=== PATIENT | female | born 1995 | race Caucasian/White ===

== ENCOUNTER → 2020-07-03 | Outpatient (REF) | payer OTHER ==
[2020-07-03 18:32] LABS: HEMATOCRIT 35.9 % (36.0-47.0); MEAN CORPUSCULAR HEMOGLOBIN 30.5 pg (27.0-33.0); MEAN CORPUSCULAR HGB CONC 33.4 g/dl (32.0-36.5); MEAN CORPUSCULAR VOLUME 91.1 fl (80.0-96.0); PLATELET COUNT, AUTOMATED 201 10^3/uL (150-450); RED BLOOD COUNT 3.94 10^6/uL (4.00-5.40)
[2020-07-03 19:29] LABS: HEPATITIS C VIRUS ABY INDEX < 0.0 INDEX (<0.8); HIV 1&2 SCREEN CENTAUR NEGATIVE (NEGATIVE)
== END ==
LOC: M PLALAB 15:09
PROVIDERS: ATTEND Advanced Practice Midwife
DX: Z34.01 Encounter for supervision of normal first pregnancy, first trimester (principal)

== ENCOUNTER → 2020-10-06 | Outpatient (CLI) | payer OTHER ==
--- NOTE | 2020-10-06 15:41 | REP ---
INDICATION: ANATOMY. COMPARISON: None. TECHNIQUE: Ultrasound FINDINGS: A single living fetus is present in vertex presentation showing heart rate 161 beats per minute. Placenta anterior grade 1. No previa demonstrated. There is marginal insertion of the cord. Three vessels are noted in the umbilical cord. The anatomic survey was complete and unremarkable except for four-chamber heart which was suboptimal. Average gestational age was calculated from the following measurements BPD 5.2, HCT 19.2, AC 15.4, FL 3.4 cm, HL 3.3 cm. The average gestational age is 21 weeks and 1 day with EB 02/15/2021. IMPRESSION: Living intrauterine female fetus in vertex presentation showing EB 02/15/2021 <Electronically signed by Onel Guidry > 10/06/20 [id number]
== END ==
LOC: M WHC 14:36
PROVIDERS: ATTEND Advanced Practice Midwife
DX: Z34.02 Encounter for supervision of normal first pregnancy, second trimester (principal); Z3A.21 21 weeks gestation of pregnancy

== ENCOUNTER → 2020-11-17 | Outpatient (CLI) | payer OTHER ==
--- NOTE | 2020-11-17 11:22 | REP ---
INDICATION: F/U ANATOMY. COMPARISON: 10/06/2020. TECHNIQUE: Real-time sonographic evaluation of the gravid uterus performed. FINDINGS: Estimated gestational age is26 weeks 5 days, EDC 02/19/2020. Today's measurements indicate appropriate growth. Presentation: Breech Placenta anterior, grade 2, without evidence of placenta previa. heart rate is recorded at 139 beats per minute. Amniotic fluid is subjectively normal. Closed cervical length is measured at 4.1 cm. Biometry chart: BPD: 68 mm, 27 weeks 3 days, 65th percentile. HC: 256 mm, 27 weeks 6 days, 74th percentile AC: 225 mm, 26 weeks 6 days, 54th percentile Femur length: 53 mm, 28 weeks 1 days, 81st percentile HC to AC ratio: 1.14, normal range 1.00-1.19. Estimated weight: 1080g, 69th percentile. anatomy: Four-chamber heart and ventricular outflow tracts are visualized today and are grossly unremarkable. IMPRESSION: Viable single intrauterine gestation as above. <Electronically signed by Cal Jones > 11/17/20 [id number]
== END ==
LOC: M WHC 07:19
PROVIDERS: ATTEND Advanced Practice Midwife
DX: Z34.02 Encounter for supervision of normal first pregnancy, second trimester (principal); Z3A.26 26 weeks gestation of pregnancy

== ENCOUNTER → 2020-11-23 | Outpatient (CLI) | payer OTHER ==
[2020-11-23 13:48] LABS: HEMATOCRIT 33.5 % (36.0-47.0); HEMOGLOBIN 11.2 g/dl (12.0-15.5); MEAN CORPUSCULAR HEMOGLOBIN 30.5 pg (27.0-33.0); MEAN CORPUSCULAR HGB CONC 33.4 g/dl (32.0-36.5); MEAN CORPUSCULAR VOLUME 91.3 fl (80.0-96.0); PLATELET COUNT, AUTOMATED 201 10^3/uL (150-450); RED BLOOD COUNT 3.67 10^6/uL (4.00-5.40); WHITE BLOOD COUNT 9.2 10^3/uL (4.0-10.0)
== END ==
LOC: M PLALAB 10:06
PROVIDERS: ATTEND Advanced Practice Midwife
DX: Z34.02 Encounter for supervision of normal first pregnancy, second trimester (principal); Z3A.00 Weeks of gestation of pregnancy not specified
CPT/HCPCS: 36415; 82950; 85027; 86850; 86900; 86901; J2790

== ENCOUNTER → 2021-01-03 | Outpatient (REF) | payer OTHER | LOC: M PLALAB 19:12 | PROVIDERS: ATTEND Advanced Practice Midwife | DX: Z53.20 Procedure and treatment not carried out because of patient's decision for unspecified reasons (principal) ==

== ENCOUNTER → 2021-01-04 | Outpatient (CLI) | payer OTHER ==
[2021-01-04 14:24] LABS: HEMATOCRIT 36.2 % (36.0-47.0); MEAN CORPUSCULAR HEMOGLOBIN 29.2 pg (27.0-33.0); MEAN CORPUSCULAR HGB CONC 33.1 g/dl (32.0-36.5); MEAN CORPUSCULAR VOLUME 88.1 fl (80.0-96.0); PLATELET COUNT, AUTOMATED 238 10^3/uL (150-450); RED BLOOD COUNT 4.11 10^6/uL (4.00-5.40); WHITE BLOOD COUNT 8.6 10^3/uL (4.0-10.0)
[2021-01-04 16:31] LABS: ALBUMIN 2.4 GM/DL (3.2-5.2); BILIRUBIN,DIRECT 0.2 MG/DL (0.0-0.2); BILIRUBIN,TOTAL 0.4 MG/DL (0.2-1.0); TOTAL PROTEIN 6.1 GM/DL (6.4-8.2)
== END ==
LOC: M PLALAB 10:14
PROVIDERS: ATTEND Advanced Practice Midwife
DX: L29.9 Pruritus, unspecified (principal)

== ENCOUNTER → 2021-01-10 | Outpatient (CLI) | payer OTHER ==
--- NOTE | 2021-01-10 15:01 | REP ---
INDICATION: TOXIC LIVER DISEASE WITH CHOLESTASIS COMPARISON: 11/17/2020 TECHNIQUE: Transabdominal obstetrical ultrasound with color Doppler evaluation. FINDINGS: Examination demonstrates a single live intrauterine in cephalic presentation. motion is identified by technologist. Placenta is noted anterior and grade 1 without evidence for placenta previa or abruption. Amniotic fluid volume is normal. Cervix measures 3.4 cm in length and appears closed.. Selected gestational age: 34 weeks 3 days with EB 02/18/2021. Gestational age by current measurements 35 weeks 1 day with EB 02/13/2021. FHR equals 152 beats per minute. BPD: 8.8 cm at 35 weeks 4 days HC: 31.7 cm at 35 weeks 5 days AC: 31.6 cm at 35 weeks 4 days FL: 6.9 cm at 35 weeks 4 days HL: 5.8 cm at 33 weeks 4 days HC/AC: 1.00 Estimated weight 2705 grams (77thpercentile). KAYKAY: 17.6 cm IMPRESSION: Single live intrauterine in cephalic presentation demonstrating appropriate estimated weight and growth. <Electronically signed by Uche Gentile > 01/10/21 [id number]
== END ==
LOC: M WHC 14:29
PROVIDERS: ATTEND Advanced Practice Midwife
DX: K71.0 Toxic liver disease with cholestasis (principal)

== ENCOUNTER 2021-01-13 14:16 | Outpatient (CLI) | payer OTHER ==
[~2021-01-13] VITALS: Ht 165.1 cm; Wt 75.2 kg
[2021-01-13 14:31] VITALS: BP 129/81
[2021-01-13] MEDS ORDERED: URSO300C3 PO (14:39)
[2021-01-13] MEDS ORDERED: PRENTAB9 PO (14:39)
[2021-01-13] MEDS ORDERED: HOME MED LIST COMPLETE! XX SCH (14:40)
--- NOTE | 2021-01-13 23:21 | IPNPDOC ---
Text Note Date of Service The patient was seen on 01/13/21. NOTE S: Pt is a 25yo at 34.6 EGA who presents with dfm. Denies ctx/lof/vb. Pt with reactive NST in triage with normalization of movement. VS wnl. Pt dc'ed home with precautions and routine follow up. VS,Fishbone, I+O VS, Fishbone, I+O Vital Signs Date Time Temp Pulse Resp B/P (MAP) Pulse Ox O2 Delivery O2 Flow Rate FiO2 01/13/21 14:31 98.1 100 16 129/81 (97) 99 Room Air ISADORA MODI MD Jan 13, 2021 23:21
== END 2021-01-13 15:11 | disposition home or self-care (01) ==
LOC: M LDO 14:16
PROVIDERS: ATTEND Obstetrics & Gynecology
DX: O36.8130 Decreased fetal movements, third trimester, not applicable or unspecified (principal); Z3A.34 34 weeks gestation of pregnancy
CPT/HCPCS: 59025; G0378; G0463

== ENCOUNTER → 2021-01-16 | Outpatient (REF) | payer OTHER ==
[~2021-01-16] MED LIST: PRENTAB9 PO; URSO300C3 PO
== END ==
LOC: M SFHCWAGY 12:52
PROVIDERS: ATTEND Advanced Practice Midwife
DX: Z36.85 Encounter for antenatal screening for Streptococcus B (principal); Z3A.35 35 weeks gestation of pregnancy

== ENCOUNTER 2021-01-29 08:13 | Inpatient (IN) | payer OTHER ==
[~2021-01-29] VITALS: Ht 165.1 cm; Wt 76.0 kg
[2021-01-29] VITALS (40 sets, daily range): BP systolic 121–174; BP diastolic 72–99
--- OUTSIDE RECORDS SUMMARY | 2021-01-29 08:19 | CCD ---
Author Author [facility] Organization [facility] Address Unknown Phone Unavailable Care Team Providers Care Viticulture Teacher Name Role Phone NINA, Amarilis CRAWFORD PA Unavailable Unavailable LETTIERE, A TY PA Unavailable Unavailable LETTIERE, A TY PA Unavailable Unavailable LETTIERE, A TY PA Unavailable Unavailable LETTIERE, A TY PA Unavailable Unavailable LETTIERE, A TY PA Unavailable Unavailable LETTIERE, A TY PA Unavailable Unavailable LETTIERE, A TY PA Unavailable Unavailable LETTIERE, A TY PA Unavailable Unavailable LETTIERE, A TY PA Unavailable Unavailable LETTIERE, A TY PA Unavailable Unavailable LETTIERE, A TY PA Unavailable Unavailable LETTIERE, A TY PA Unavailable Unavailable LETTIERE, A TY PA Unavailable Unavailable LETTIERE, A TY PA Unavailable Unavailable LETTIERE, A TY PA Unavailable Unavailable LETTIERE, A TY PA Unavailable Unavailable LETTIERE, A TY PA Unavailable Unavailable LETTIERE, A TY PA Unavailable Unavailable LETTIERE, A TY PA Unavailable Unavailable LETTIERE, A TY PA Unavailable Unavailable LETTIERE, A TY PA Unavailable Unavailable LETTIERE, A TY PA Unavailable Unavailable LETTIERE, A TY PA Unavailable Unavailable LETTIERE, A TY PA Unavailable Unavailable LETTIERE, A TY PA Unavailable Unavailable LETTIERE, A TY PA Unavailable Unavailable LETTIERE, A TY PA Unavailable Unavailable LETTIERE, A TY PA Unavailable Unavailable LETTIERE, A TY PA Unavailable Unavailable LETTIERE, A TY PA Unavailable Unavailable Re-disclosure Warning The records that you are about to access may contain information from federally-assisted alcohol or drug abuse programs. If such information is present, then the following federally mandated warning applies: This information has been disclosed to you from records protected by federal confidentiality rules (42 CFR part 2). The federal rules prohibit you from making any further disclosure of this information unless further disclosure is expressly permitted by the written consent of the person to whom it pertains or as otherwise permitted by 42 CFR part 2. A general authorization for the release of medical or other information is NOT sufficient for this purpose. The Federal rules restrict any use of the information to criminally investigate or prosecute any alcohol or drug abuse patient.The records that you are about to access may contain highly sensitive health information, the redisclosure of which is protected by Article 27-F of the [facility] Public Health law. If you continue you may have access to information: Regarding HIV / AIDS; Provided by facilities licensed or operated by the [facility] Office of Mental Health; or Provided by the [facility] Office for People With Developmental Disabilities. If such information is present, then the following [facility] mandated warning applies: This information has been disclosed to you from confidential records which are protected by state law. State law prohibits you from making any further disclosure of this information without the specific written consent of the person to whom it pertains, or as otherwise permitted by law. Any unauthorized further disclosure in violation of state law may result in a fine or fci sentence or both. A general authorization for the release of medical or other information is NOT sufficient authorization for further disc losure. Encounters Encounter Providers Location Date Indications Data Source(s ) ( ESTOB) enter Est OB [address] [place] [address] 01/16/2021 12:00:00 AM EST eCW1 ([facility]) Unknown [address] [facility] [address] 01/16/2021 12:00:00 AM EST eCW1 ([facility]) ( ESTOB) enter Est OB [address] [place] [address] 01/09/2021 12:00:00 AM EST eCW1 ([facility]) Unknown [address] [facility] [address] 01/03/2021 12:00:00 AM EST eCW1 ([facility]) ( ESTOB) [facility] Est OB [address] [place] [address] 12/12/2020 12:00:00 AM EDT eCW1 ([facility]) ( ESTOB) [facility] Est OB [address] [place] [address] 11/28/2020 12:00:00 AM EDT eCW1 ([facility]) ( ESTOB) enter Est OB [address] [place] [address] 10/31/2020 12:00:00 AM EDT eCW1 ([facility]) ( ESTOB) [facility] Est OB [address] [place] [address] 09/15/2020 12:00:00 AM EDT eCW1 ([facility]) Unknown [address] [facility] [address] 09/13/2020 12:00:00 AM EDT eCW1 ([facility]) Outpatient Attender: TY rojas 08/15/2020 02:15:00 PM EDT MEDENT ([facility]) ( ESTOB) [facility] Est OB [address] [place] [address] 07/31/2020 12:00:00 AM EDT eCW1 ([facility]) ( ESTOB) [facility] Est OB [address] [place] [address] 07/03/2020 12:00:00 AM EDT eCW1 ([facility]) Immunizations Vaccine Date Status Description Data Source(s) 12/12/2020 09:46:00 AM EDT completed e CW1 ([facility]) Tdap 12/12/2020 09:44:00 AM EDT completed e CW1 ([facility]) Tdap 12/12/2020 09:44:00 AM EDT completed e CW1 ([facility]) Tdap 12/12/2020 09:44:00 AM EDT completed e CW1 ([facility]) Tdap 12/12/2020 09:44:00 AM EDT completed e CW1 ([facility]) Tdap 12/12/2020 09:44:00 AM EDT completed e CW1 ([facility]) TB Skin test is not vaccine. 08/15/2020 02:02:00 PM EDT completed MEDENT ([facility]) Medications Medication Brand Name Start Date Product Form Dose Route Admi nistrative Instructions Pharmacy Instructions Status Indications Reaction Description Data Source(s) Ursodiol 300 MG Oral Capsule Ursodiol 300 MG 01/09/2021 12:00:00 AM EST 1.0 {capsule} active Ursodiol 300 MG eCW1 ( [facility]) Ursodiol 300 MG Oral Capsule Ursodiol 300 MG 01/09/2021 12:00:00 AM EST 1.0 {capsule} active Ursodiol 300 MG eCW1 ( [facility]) Ursodiol 300 MG Oral Capsule Ursodiol 300 MG 01/09/2021 12:00:00 AM EST 1.0 {capsule} active Ursodiol 300 MG eCW1 ( [facility]) Insurance Providers Payer name Policy type / Coverage type Policy ID Covered green party ID Covered green party's relationship to vila Policy Vila Plan Information [facility] [id number] Problems, Conditions, and Diagnoses Code Display Name Description Problem Type Effective Dates Data Source(s) K71.0 Toxic liver disease with cholestasis Toxic liver disease with cholestasis Problem 01/09/2021 12:00:00 AM EST eCW1 ([facility]) Z34.80 care Supervision of other normal P roblem 06/29/2020 12:00:00 AM EDT eCW1 ([facility]) Surgeries/Procedures Procedure Description Date Indications Data Source(s) NONSTRESS TEST 01/09/2021 12:00:00 AM EST eCW1 ([facility]) Inj: RhoGAM 300mcg/1.5mL IM Rho D Immune Globulin Human 12/12/2020 12:00:00 AM EDT eCW1 ([facility]) TDAP VACCINE 7/> YR IM 12/12/2020 12:00:00 AM EDT eCW1 ([facility]) INITIAL PREVENTIVE MEDICINE NEW PT AGE 18-39YRS 2020 12:00:00 AM EDT MEDENT ([facility]) Results ID Date Data Source [id number] 11/18/2020 04:15:00 PM EDT [facility] Name Value Range Interpretation Code Description Data Christelle rce(s) Supporting Document(s) SARS-CoV-2 RNA Resp Ql PAULA+probe NOT DETECTED [facility] This lab was ordered by MARYSOL long and reported by MARYSOL Johnson. ID Date Data Source [id number] 11/15/2020 02:45:00 PM EDT [facility] Name Value Range Interpretation Code Description Data Christelle rce(s) Supporting Document(s) SARS-CoV-2 RNA Resp Ql PAULA+probe NOT DETECTED [facility] This lab was ordered by MARYSOL long and reported by MARYSOL Johnson. Procedure Social History Code Duration Value Status Description Data Source(s ) Smoking 01/15/2021 12:00:00 AM EST Never Smoker completed Never S moker eCW1 ([facility]) Smoking 01/15/2021 12:00:00 AM EST Never Smoker completed Never S moker eCW1 ([facility]) Smoking 01/09/2021 12:00:00 AM EST Never Smoker completed Never S moker eCW1 ([facility]) Smoking 12/26/2020 12:00:00 AM EDT Never Smoker completed Never S moker eCW1 ([facility]) Smoking 12/08/2020 12:00:00 AM EDT Never Smoker completed Never S moker eCW1 ([facility]) Smoking 11/27/2020 12:00:00 AM EDT Never Smoker completed Never S moker eCW1 ([facility]) Smoking 10/23/2020 12:00:00 AM EDT Never Smoker completed Never S moker eCW1 ([facility]) Smoking 09/15/2020 12:00:00 AM EDT Never Smoker completed Never S moker eCW1 ([facility]) Smoking 07/18/2020 12:00:00 AM EDT Never Smoker completed Never S moker eCW1 ([facility]) Smoking 07/18/2020 12:00:00 AM EDT Never Smoker completed Never S moker eCW1 ([facility]) Smoking 07/03/2020 12:00:00 AM EDT Never Smoker completed Never S moker eCW1 ([facility]) Vital Signs ID Date Data Source UNK Name Value Range Interpretation Code Description Data Source(s) Body weight 163 [lb_av] 163 [lb_av] eCW1 ([facility]) Body weight 73.94 kg 73.94 kg eCW1 ([facility]) Body height 65 [in_i] 65 [in_i] eCW1 ([facility]) Body mass index (BMI) [Ratio] 27.125 kg/m2 27.1 25 kg/m2 eCW1 ([facility]) Systolic blood pressure 122 mm[Hg] 122 mm[Hg] e CW1 ([facility]) Diastolic blood pressure 84 mm[Hg] 84 mm[Hg] eCW1 ([facility]) Body weight 166.8 [lb_av] 166.8 [lb_av] eCW1 ([facility]) Body weight 75.66 kg 75.66 kg eCW1 ([facility]) Body height 65 [in_i] 65 [in_i] eCW1 ([facility]) Diastolic blood pressure 80 mm[Hg] 80 mm[Hg] eCW1 ([facility]) Body mass index (BMI) [Ratio] 27.757 kg/m2 27.7 57 kg/m2 eCW1 ([facility]) Systolic blood pressure 122 mm[Hg] 122 mm[Hg] e CW1 ([facility]) Body weight 154.8 [lb_av] 154.8 [lb_av] eCW1 ([facility]) Body weight 70.22 kg 70.22 kg eCW1 ([facility]) Body height 65 [in_i] 65 [in_i] eCW1 ([facility]) Body mass index (BMI) [Ratio] 25.76 kg/m2 25.76 kg/m2 eCW1 ([facility]) Systolic blood pressure 116 mm[Hg] 116 mm[Hg] e CW1 ([facility]) Diastolic blood pressure 80 mm[Hg] 80 mm[Hg] eCW1 ([facility]) Body weight 154.6 [lb_av] 154.6 [lb_av] eCW1 ([facility]) Body weight 70.13 kg 70.13 kg eCW1 ([facility]) Body height 65 [in_i] 65 [in_i] eCW1 ([facility]) Body mass index (BMI) [Ratio] 25.727 kg/m2 25.7 27 kg/m2 eCW1 ([facility]) Systolic blood pressure 110 mm[Hg] 110 mm[Hg] e CW1 ([facility]) Diastolic blood pressure 76 mm[Hg] 76 mm[Hg] eCW1 ([facility]) Body weight 149 [lb_av] 149 [lb_av] eCW1 ([facility]) Body weight 67.59 kg 67.59 kg eCW1 ([facility]) Body height 65 [in_i] 65 [in_i] eCW1 ([facility]) Body mass index (BMI) [Ratio] 24.795 kg/m2 24.7 95 kg/m2 eCW1 ([facility]) Systolic blood pressure 126 mm[Hg] 126 mm[Hg] e CW1 ([facility]) Diastolic blood pressure 78 mm[Hg] 78 mm[Hg] eCW1 ([facility]) Body weight 143.6 [lb_av] 143.6 [lb_av] eCW1 ([facility]) Body mass index (BMI) [Ratio] 23.896 kg/m2 23.8 96 kg/m2 eCW1 ([facility]) Body weight 65.14 kg 65.14 kg eCW1 ([facility]) Body height 65 [in_i] 65 [in_i] eCW1 ([facility]) Systolic blood pressure 110 mm[Hg] 110 mm[Hg] e CW1 ([facility]) Diastolic blood pressure 74 mm[Hg] 74 mm[Hg] eCW1 ([facility]) Body height 66 [in_i] 66 [in_i] MEDENT ([facility]) 5'6" Body mass index (BMI) [Ratio] 22.3 kg/m2 22.3 k g/m2 MEDENT ([facility], [facility]) Systolic blood pressure 118 mm[Hg] 118 mm[Hg] M EDENT ([facility], [facility]) Heart rate 98 /min 98 /min [facility], [facility]) Diastolic blood pressure 77 mm[Hg] 77 mm[Hg] MEDENT ([facility], [facility]) Respiratory rate 16 /min 16 /min [facility] ( [facility], [facility]) Oxygen saturation in Arterial blood by Pulse oximetry 99 % 99 % MEDENT ([facility], [facility]) Body temperature 97.5 [degF] 97.5 [degF] MEDENT ([facility], [facility]) Body weight 138.00 [lb_av] 138.00 [lb_av] MEDEN T ([facility], [facility]) Body weight 138.8 [lb_av] 138.8 [lb_av] eCW1 ([facility]) Body weight 62.96 kg 62.96 kg W1 ([facility]) Body height 65 [in_i] 65 [in_i] eCW1 ([facility]) Body mass index (BMI) [Ratio] 23.098 kg/m2 23.0 98 kg/m2 eCW1 ([facility]) Systolic blood pressure 112 mm[Hg] 112 mm[Hg] e CW1 ([facility]) Diastolic blood pressure 68 mm[Hg] 68 mm[Hg] eCW1 ([facility]) Body weight 139.8 [lb_av] 139.8 [lb_av] eCW1 ([facility]) Body weight 63.41 kg 63.41 kg eCW1 ([facility]) Body height 65 [in_i] 65 [in_i] eCW1 ([facility]) Body mass index (BMI) [Ratio] 23.264 kg/m2 23.2 64 kg/m2 [facility] ([facility]) Systolic blood pressure 122 mm[Hg] 122 mm[Hg] e CW1 ([facility]) Diastolic blood pressure 62 mm[Hg] 62 mm[Hg] eCW1 ([facility]) Patient Treatment Plan of Care Planned Activity Planned Date Details Description Data Source (s) Ursodiol 300 MG Oral Capsule 01/09/2021 12:00:00 AM EST [facility] ([facility])
--- OUTSIDE RECORDS SUMMARY | 2021-01-29 08:19 | CCD ---
Author Author [facility] Organization [facility] Address Unknown Phone Unavailable Care Team Providers Care Swimming Pool Maintenance Supervisor Name Role Phone MalikRigoberto Unavailable PROBLEMS Type Condition ICD9-CM Code [id number] Code Onset Dates Condition S tatus W/U Status Risk SNOMED Code Notes Problem Supervision of other normal Z34.80 Ac tive confirm [id number] ALLERGIES No Known Allergies ENCOUNTERS from 1997 to 2020-12-12 Encounter Location Date Provider Diagnosis [facility] [phone] [place] [address] Nov, Rigoberto Gan Encounter for superv ision of normal first in third trimester Z34.03 IMMUNIZATIONS Vaccine Route Administration Date Status TDAP 0.5mL Boostrix IM Intramuscular Dec 12, 2020 Administere d RHo D Immune Globulin 300mcg/1.5mL RhoGAM IM Intramuscular Nov 242020 Administered SOCIAL HISTORY Tobacco Use: Social History Observation Description Date Details (start date - stop date) Never Smoker Sex Assigned At : Social History Observation Description Sex Assigned At Unknown Tobacco Use: Question Answer Notes Are you a: never smoker REASON FOR REFERRAL No Information VITAL SIGNS Weight 154.8 lbs Nov, Weight-kg 70.22 kg Nov, Height 65 in Nov, BMI 25.76 kg/m2 Nov, Blood pressure systolic 116 mm Hg Nov, Blood pressure diastolic 80 mm Hg Nov, MEDICATIONS Medication SIG (Take, Route, Frequency, Duration) Notes Start Da te End Date Status 27-1 MG 1 tablet Orally Once a day Active PROCEDURES from 1997 to 2020-12-12 Procedure Date Ordered Result Body Site Imm: Boostrix 0.5mL IM TDAP 2020-12-12 N/A Inj: RhoGAM 300mcg/1.5mL IM Rho D Immune Globulin Human N/A RESULTS No Results REASON FOR VISIT 2 WK PN MEDICAL (GENERAL) HISTORY Type Description Date Surgical History [place] Teeth Extraction Goals Section No Information Health Concerns No Information MEDICAL EQUIPMENT No Information MENTAL STATUS No Information FUNCTIONAL STATUS No Information ASSESSMENTS Encounter Date Diagnosis Assessment Notes Treatment Notes Treatm ent Clinical Notes Nov, Encounter for supervision of normal first in third trimester (ICD-10 - Z34.03) PLAN OF TREATMENT Next Appt Details 2 Weeks Reason: Provider Name:Rigoberto Gan, 2020-12-26 0 8:40:00 AM, [address] [facility], , [place], [address], Insurance Providers Payer Name Payer Address Payer Phone Insured Name Patient Relati onship to Insured Coverage Start Date Coverage End Date [address] [phone] CHAPARRITA TREVIÑO self
--- OUTSIDE RECORDS SUMMARY | 2021-01-29 08:19 | CCD ---
Author Author [facility] Organization [facility] Address Unknown Phone Unavailable Care Team Providers Care Classroom Instructor Name Role Phone Rigoberto Gan Unavailable PROBLEMS ALLERGIES No Known Allergies ENCOUNTERS from 1997 to 2021-01-05 IMMUNIZATIONS SOCIAL HISTORY REASON FOR REFERRAL No Information VITAL SIGNS MEDICATIONS PROCEDURES No Information RESULTS No Results REASON FOR VISIT No Information MEDICAL (GENERAL) HISTORY Goals Section Health Concerns MEDICAL EQUIPMENT No Information MENTAL STATUS FUNCTIONAL STATUS ASSESSMENTS PLAN OF TREATMENT Insurance Providers
--- OUTSIDE RECORDS SUMMARY | 2021-01-29 08:19 | CCD ---
Author Author [facility] [employer] [facility] Organization [facility] Address Unknown Phone Unavailable Care Team Providers Care Heavy Cleaner Name Role Phone Trisha Vargas Unavailable PROBLEMS Type Condition ICD9-CM Code [id number] Code Onset Dates Condition S tatus W/U Status Risk SNOMED Code Notes Problem Supervision of other normal Z34.80 Ac tive confirm [id number] Problem Toxic liver disease with cholestasis K71.0 Act martina confirmed [id number] ALLERGIES No Known Allergies ENCOUNTERS from 1997 to 2021-01-17 Encounter Location Date Provider Diagnosis [facility] [phone] [place] [address] Dec, Trisha Vargas IMMUNIZATIONS Vaccine Route Administration Date Status TDAP 0.5mL Boostrix IM Intramuscular Dec 12, 2020 Administere d SOCIAL HISTORY Tobacco Use: Social History Observation Description Date Details (start date - stop date) Never Smoker Sex Assigned At : Social History Observation Description Sex Assigned At Unknown Tobacco Use: Question Answer Notes Are you a: never smoker REASON FOR REFERRAL No Information VITAL SIGNS No information MEDICATIONS Medication SIG (Take, Route, Frequency, Duration) Notes Start Da te End Date Status 27-1 MG 1 tablet Orally Once a day Active Ursodiol 300 MG 1 capsule Orally Three times daily for 30 day(s) Dec, Active PROCEDURES No Information RESULTS No Results REASON FOR VISIT appt MEDICAL (GENERAL) HISTORY Type Description Date Surgical History [place] Teeth Extraction Goals Section No Information Health Concerns No Information MEDICAL EQUIPMENT No Information MENTAL STATUS No Information FUNCTIONAL STATUS No Information ASSESSMENTS No Information PLAN OF TREATMENT Next Appt Details Provider Name:Trisha Vargas, 2021-01-24 01:20:00 PM, [address] [facility], , [place], [address], Insurance Providers Payer Name Payer Address Payer Phone Insured Name Patient Relati onship to Insured Coverage Start Date Coverage End Date [place] [id number] [phone] CHAPARRITA TREVIÑO self
--- OUTSIDE RECORDS SUMMARY | 2021-01-29 08:19 | CCD ---
Author Author [facility] Organization [facility] Address Unknown Phone Unavailable Care Team Providers Care Senior Manufacturing Supervisor Name Role Phone Trisha Vargas Unavailable PROBLEMS Type Condition ICD9-CM Code [id number] Code Onset Dates Condition S tatus W/U Status Risk SNOMED Code Notes Problem Supervision of other normal Z34.80 Ac tive confirm [id number] Problem Toxic liver disease with cholestasis K71.0 Act martina confirmed [id number] ALLERGIES No Known Allergies ENCOUNTERS from 1997 to 2021-01-17 Encounter Location Date Provider Diagnosis [facility] [address] [facility] [phone] [place] [address] Dec, Trisha Vargas Toxic liver disea se with cholestasis K71.0 ; Other specified related conditions, third trimester O26.893 and 35 weeks gestation of Z3A.35 IMMUNIZATIONS Vaccine Route Administration Date Status TDAP 0.5mL Boostrix IM Intramuscular Dec 12, 2020 Administere d SOCIAL HISTORY Tobacco Use: Social History Observation Description Date Details (start date - stop date) Never Smoker Sex Assigned At : Social History Observation Description Sex Assigned At Unknown Tobacco Use: Question Answer Notes Are you a: never smoker REASON FOR REFERRAL No Information VITAL SIGNS Weight 163 lbs Dec, Weight-kg 73.94 kg Dec, Height 65 in Dec, BMI 27.125 kg/m2 Dec, Blood pressure systolic 122 mm Hg Dec, Blood pressure diastolic 84 mm Hg Dec, MEDICATIONS Medication SIG (Take, Route, Frequency, Duration) Notes Start Da te End Date Status 27-1 MG 1 tablet Orally Once a day Active Ursodiol 300 MG 1 capsule Orally Three times daily for 30 day(s) Dec, Active PROCEDURES No Information RESULTS No Results REASON FOR VISIT 1 wk pn MEDICAL (GENERAL) HISTORY Type Description Date Surgical History [place] Teeth Extraction Goals Section No Information Health Concerns No Information MEDICAL EQUIPMENT No Information MENTAL STATUS No Information FUNCTIONAL STATUS No Information ASSESSMENTS Encounter Date Diagnosis Assessment Notes Treatment Notes Treatm ent Clinical Notes Dec, Toxic liver disease with cholestasis (ICD-10 - K 71.0) Dec, Other specified re lated conditions, third trimester (ICD- 10 - O26.893) Dec, 35 weeks gestation of (ICD-10 - Z3A.35 ) PLAN OF TREATMENT Pending Tests Test Name Order Date GROUP B STREP CULTURE 2021-01-16 non-stress test 2021-01-16 Next Appt Details 1 Week Reason:- COB appt with testing [facility]-01-24 01:00:00 PM, [address] [facility], , [place], [address], Follow Up:1 Week- COB appt with testing Insurance Providers Payer Name Payer Address Payer Phone Insured Name Patient Relati onship to Insured Coverage Start Date Coverage End Date [place] [phone] CHAPARRITA TREVIÑO self
--- OUTSIDE RECORDS SUMMARY | 2021-01-29 08:19 | CCD ---
Author Author [facility] Organization 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 Act martina confirmed [id number] ALLERGIES No Known Allergies ENCOUNTERS from 1997 to 2021-01-10 Encounter Location Date Provider Diagnosis [facility] [address] [facility] [phone] [place] [address] Dec, Trishayaneth Vargas Toxic liver disea se with cholestasis K71.0 ; Liver and biliary tract disorders in , third trimester O26.613 and 34 weeks gestation of Z3A.34 IMMUNIZATIONS Vaccine Route Administration Date Status TDAP 0.5mL Boostrix IM Intramuscular Dec 12, 2020 Administere d SOCIAL HISTORY Tobacco Use: Social History Observation Description Date Details (start date - stop date) Never Smoker Sex Assigned At : Social History Observation Description Sex Assigned At Unknown Tobacco Use: Question Answer Notes Are you a: never smoker REASON FOR REFERRAL No Information VITAL SIGNS Weight 166.8 lbs Dec, Weight-kg 75.66 kg Dec, Height 65 in Dec, BMI 27.757 kg/m2 Dec, Blood pressure systolic 122 mm Hg Dec, Blood pressure diastolic 80 mm Hg Dec, MEDICATIONS Medication SIG (Take, Route, Frequency, Duration) Notes Start Da te End Date Status 27-1 MG 1 tablet Orally Once a day Active Ursodiol 300 MG 1 capsule Orally Three times daily for 30 day(s) Dec, Active PROCEDURES from 1997 to 2021-01-10 Procedure Date Ordered Result Body Site non-stress test 2021-01-09 N/A RESULTS No Results REASON FOR VISIT 2 WK PN MEDICAL (GENERAL) HISTORY Type Description Date Surgical History [place] Teeth Extraction Goals Section No Information Health Concerns No Information MEDICAL EQUIPMENT No Information MENTAL STATUS No Information FUNCTIONAL STATUS No Information ASSESSMENTS Encounter Date Diagnosis Assessment Notes Treatment Notes Treatm ent Clinical Notes Dec, Toxic liver disease with cholestasis (ICD-10 - K 71.0) Dec, Liver and biliary tract diso rders in , third trimester (ICD-10 - O26.613) Dec, 34 weeks gestation of (ICD-10 - Z3A.34 ) PLAN OF TREATMENT Medication Medication Name Sig Start Date Stop Date Ursodiol 300 MG 1 capsule Orally Three times daily for 30 day(s) Dec, Pending Tests Test Name Order Date [facility] OBS FOLLOW UP OR REPEAT 2021-01-09 Next Appt Details 1 Week Reason:- COB appt with testing Provider Name:Trisha Vargas, 2021-01-16 11:00:00 AM, [address] [facility], , [place], [address], Follow Up:1 Week- COB appt with testing Insurance Providers Payer Name Payer Address Payer Phone Insured Name Patient Relati onship to Insured Coverage Start Date Coverage End Date [address] [phone] CHAPARRITA TREVIÑO self
--- OUTSIDE RECORDS SUMMARY | 2021-01-29 08:19 | CCD ---
Author Author [facility] Organization [facility] Address Unknown Phone Unavailable Care Team Providers Care Forms Builder Name Role Phone MalikRigoberto Unavailable PROBLEMS Type Condition ICD9-CM Code [id number] Code Onset Dates Condition S tatus W/U Status Risk SNOMED Code Notes Problem Supervision of other normal Z34.80 Ac tive confirm [id number] ALLERGIES No Known Allergies ENCOUNTERS from 1997 to 2020-11-28 Encounter Location Date Provider Diagnosis [facility] [address] [place] [address] [place] [address] Nov, Rigoberto Gan Encounter for superv ision of normal first in third trimester Z34.03 IMMUNIZATIONS No Information SOCIAL HISTORY Tobacco Use: Social History Observation Description Date Details (start date - stop date) Never Smoker Sex Assigned At : Social History Observation Description Sex Assigned At Unknown Tobacco Use: Question Answer Notes Are you a: never smoker REASON FOR REFERRAL No Information VITAL SIGNS Weight 154.6 lbs Nov, Weight-kg 70.13 kg Nov, Height 65 in Nov, BMI 25.727 kg/m2 Nov, Blood pressure systolic 110 mm Hg Nov, Blood pressure diastolic 76 mm Hg Nov, MEDICATIONS Medication SIG (Take, Route, Frequency, Duration) Notes Start Da te End Date Status 27-1 MG 1 tablet Orally Once a day Active PROCEDURES No Information RESULTS No Results REASON FOR VISIT 4 wk pn MEDICAL (GENERAL) HISTORY Type Description Date Surgical History [place] Teeth Extraction Goals Section No Information Health Concerns No Information MEDICAL EQUIPMENT No Information MENTAL STATUS No Information FUNCTIONAL STATUS No Information ASSESSMENTS Encounter Date Diagnosis Assessment Notes Treatment Notes Treatm ent Clinical Notes Nov, Encounter for supervision of normal first in third trimester (ICD-10 - Z34.03) PLAN OF TREATMENT Next Appt Details 2 Weeks Reason: Provider Name:Rigoberto Gan, 2020-12-12 0 9:00:00 AM, [address] [facility], , [place], [address], Insurance Providers Payer Name Payer Address Payer Phone Insured Name Patient Relati onship to Insured Coverage Start Date Coverage End Date [address] [phone] CHAPARRITA TREVIÑO self
--- OUTSIDE RECORDS SUMMARY | 2021-01-29 08:19 | CCD ---
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 Name Role Phone MalikRigoberto Unavailable PROBLEMS Type Condition ICD9-CM Code [id number] Code Onset Dates Condition S tatus W/U Status Risk SNOMED Code Notes Problem Supervision of other normal Z34.80 Ac tive confirm [id number] ALLERGIES No Known Allergies ENCOUNTERS from 1997 to 2020-11-01 Encounter Location Date Provider Diagnosis [facility] [facility] [phone] [place] [address] Oct, Rigoberto Gan Encounter for superv ision of normal first in second trimester Z34.02 and 24 weeks gestation of Z3A.24 IMMUNIZATIONS No Information SOCIAL HISTORY Tobacco Use: Social History Observation Description Date Details (start date - stop date) Never Smoker Sex Assigned At : Social History Observation Description Sex Assigned At Unknown Tobacco Use: Question Answer Notes Are you a: never smoker REASON FOR REFERRAL No Information VITAL SIGNS Weight 149 lbs Oct, Weight-kg 67.59 kg Oct, Height 65 in Oct, BMI 24.795 kg/m2 Oct, Blood pressure systolic 126 mm Hg Oct, Blood pressure diastolic 78 mm Hg Oct, MEDICATIONS Medication SIG (Take, Route, Frequency, Duration) Notes Start Da te End Date Status 27-1 MG 1 tablet Orally Once a day Active PROCEDURES No Information RESULTS No Results REASON FOR VISIT 4WK PN MEDICAL (GENERAL) HISTORY Type Description Date Surgical History [place] Teeth Extraction Goals Section No Information Health Concerns No Information MEDICAL EQUIPMENT No Information MENTAL STATUS No Information FUNCTIONAL STATUS No Information ASSESSMENTS Encounter Date Diagnosis Assessment Notes Treatment Notes Treatm ent Clinical Notes Oct, Encounter for supervision of normal first in second trimester (ICD-10 - Z34.02) Oct, 24 weeks gestation of (ICD-10 - Z3A.24 ) PLAN OF TREATMENT Treatment Notes Test Name Order Date [facility] OBS FOLLOW UP OR REPEAT 2020-10-31 CBC - Complete Blood Count 2020-10-31 Type and Screen (D Rh Antibody Screen) 2020-10-31 Glucose Challenge Test 1 Hour 2020-10-31 AB SCREEN (INDIRECT JAEL)GEL Antibody Screen 2020-10 RH ONLY RHOGAM 2020-10-31 RHOGAM 2020-10-31 Next Appt Details 4 Weeks Reason: Provider Name:Rigoberto Gan, 2020-11-28 0 8:00:00 AM, [address] [facility], , [place], [address], Insurance Providers Payer Name Payer Address Payer Phone Insured Name Patient Relati onship to Insured Coverage Start Date Coverage End Date [place] [phone] CHAPARRITA TREVIÑO self
[2021-01-29] MEDS ORDERED: HOME MED LIST COMPLETE! XX SCH (08:30)
[2021-01-29] MEDS ORDERED: PENICILLIN G POTASSIUM IV 5 MU in D5W MINI-BAG PLUS 100 ML IV STA (10:06)
[2021-01-29] MEDS ORDERED: METHYLERGONOVINE MALEATE 0.2 MG/ML VIAL (J2210) IM PRN (10:10)
[2021-01-29] MEDS ORDERED: CARBOPROST TROMETHAMINE 250 MCG/ML AMP IM PRN (10:10)
[2021-01-29] MEDS ORDERED: TRANEXAMIC ACID INJection 1,000 MG in NS 100 ML IV PRN (10:10)
[2021-01-29] MEDS ORDERED: OXYTOCIN DRIP 30 UNITS in IV 1 EA IV SCH (10:10)
[2021-01-29] MEDS ORDERED: LIDOCAINE 1% MDV 20ML VIAL INFIL PRN (10:10)
--- NOTE | 2021-01-29 10:35 | HPEPDOC ---
Obstetrical History & Physical General Date of Admission Jan 29, 2021 at 08:13 Primary Care Physician: GREGORY ZIMMERMAN CNM History of Present Illness Betsy is a 26-year-old female who is a at 37.1 weeks gestation gestation with an EB of 02/18/21 based off of her first trimester ultrasound. She initiated care in her first trimester of with [facility]. Her has been complicated by cholestasis. She presents to labor and delivery for induction of labor due to cholestasis. She reports active movement. She denies contractions, leaking of fluid or vaginal bleeding. 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 history Past Medical History Medical History non-contributory Surgical History: Denies/None, [place] teeth Family History Significant Family History: Cancer 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 ABDOMEN: Gravid and non-tender to touch. FETUS: Is vertex (VTX) by sterile vaginal examination (SVE), fetus is vertex (VTX) by Mario Alberto. LUNGS: Regular rate without use of accessory muscles. Breathing comfortably on R A. EXTREMITIES: No edema. No clonus. Deep tendon reflexes (DTRs) + 2. Vital Signs/I&O Vital Signs Date Time Temp Pulse Resp B/P (MAP) Pulse Ox O2 Delivery O2 Flow Rate FiO2 01/29/21 09:36 90 18 121/87 (98) 01/29/21 09:11 98.6 Laboratory Data 24H LABS Laboratory Tests 2 01/29/21 08:31: Serology Scanned Report Hepatitis B Testing Urine Culture: No Growth Pertinent Laboratoy Data Blood Type: AB- RBC Antibody Screen: Negative HIV: Negative Hepatitis B: Negative Hepatitis C: Negative Rapid Plasma Reagin: Nonreactive Rubella: Immune Chlamydia/Gonorrhea: Negative Group B Streptococcus: Positive Glucose Tolerance Test: 74 Anatomy Ultrasound Ultrasound Date: Jan 10, 2021 Placenta Location: Anterior Normal Anatomy: Yes Placenta Previa: No Estimated Weight (grams): 2705 Vaginal Examination Dilation: 4 cm Effacement: 80% Station: -1 Cervical Consistency: Soft Cervical Position: Anterior Presentation: Cephalic presentation Assessment Heart Rate (FHR): 135 Variability: Moderate Accelerations: Positive Decelerations: None Tocometer Contractions: Yes Frequency: irregular Multi-drug resistant Organism: No history of MDRO Assessment/Plan Assessment IUP at 37.1 weeks gestation GBS positive cholestasis Category I FHR tracing. Plan Admit to labor and delivery. OOB ad jairo. Diet: regular now then when Pitocin is started clear liquids. Group B Streptococcus (GBS) positive. Start antibiotics now. Labs and intravenous (IV) per unit protocol. Counseled on Pitocin for induction of labor (IOL). Anesthesia consult per patient's request. Anticipate cervical change. C-S as appropriate. GREGORY ZIMMERMAN CNM Jan 29, 2021 10:34
[2021-01-29] MEDS: LR 1,000 ML IV SCH ×3 (10:56→18:48)
[2021-01-29 10:58] LABS: HEMATOCRIT 35.2 % (36.0-47.0); HEMOGLOBIN 11.6 g/dl (12.0-15.5); MEAN CORPUSCULAR HEMOGLOBIN 28.2 pg (27.0-33.0); MEAN CORPUSCULAR VOLUME 85.6 fl (80.0-96.0); PLATELET COUNT, AUTOMATED 226 10^3/uL (150-450); RED BLOOD COUNT 4.11 10^6/uL (4.00-5.40); WHITE BLOOD COUNT 10.2 10^3/uL (4.0-10.0)
[2021-01-29] MEDS: PENICILLIN G POTASSIUM IV 2.5 MU in IV 1 EA IV SCH ×2 (14:55→18:28)
[2021-01-29] MEDS ORDERED: FENTANYL 2MCG/ML ROPIVACAINE 0.2% IN 0.9% NACL 100ML IVBAG As Ordered ONE (18:36)
[2021-01-29] MEDS ORDERED: EPIDURAL/PCA KEYS XX PRN (19:45)
[2021-01-29] MEDS ORDERED: ePHEDrine SULFATE 25 MG/5 ML(5MG/ML) SYRINGE IV PRN (19:45)
[2021-01-29] MEDS ORDERED: REFRIGERATOR IV KEYS XX PRN (19:45)
[2021-01-29] MEDS ORDERED: EPIDURAL COMMENT XX SCH (19:45)
[2021-01-29] MEDS ORDERED: ONDANSETRON 4MG/2ML VIAL IV PRN (19:45)
[2021-01-29] MEDS ORDERED: diphenhydrAMINE 50MG/ML VIAL (J1200) IV PRN (19:45)
[2021-01-29] MEDS ORDERED: NALOXONE INJ 0.4MG/1ML VIAL (J2310 PER 1MG) IV PRN (19:45)
[2021-01-29] MEDS ORDERED: LACTATED RINGER'S 1000 ML IV PRN (19:45)
[2021-01-29] MEDS ORDERED: FENTANYL/ROPIVACAINE/NACL BAG 100 ML EPIDURAL SCH (19:45)
[2021-01-29] MEDS ORDERED: ACETAMINOPHEN TAB 650MG DOSE (2X325MG) PO PRN (23:05)
[2021-01-29] MEDS ORDERED: DOCUSATE SODIUM 100MG CAPSULE PO PRN (23:05)
[2021-01-29] MEDS ORDERED: MOM 30ML SUSPENSION UDC PO PRN (23:05)
[2021-01-29] MEDS ORDERED: METHYLERGONOVINE MALEATE 0.2 MG TAB PO PRN (23:05)
[2021-01-29] MEDS ORDERED: IBUPROFEN 800 MG TAB PO PRN (23:05)
[2021-01-29] MEDS ORDERED: MEASLES,MUMPS,RUBELLA VACCINE INJ (MMR-II) (90707) SC SCH (23:05)
[2021-01-29] MEDS ORDERED: RHOGAM 300 MCG (1500 IU) INJ (J2790) IM SCH (23:05)
[2021-01-29] MEDS ORDERED: DIBUCAINE 1% OINTMENT 30GM TOP PRN (23:05)
[2021-01-29] MEDS ORDERED: ANUSOL HC CREAM 30GM TOP PRN (23:05)
[2021-01-29] MEDS ORDERED: IBUPROFEN 600MG TAB PO PRN (23:05)
[2021-01-29] MEDS ORDERED: ACETAMINOPHEN 500 MG TAB PO PRN (23:05)
[2021-01-29] MEDS ORDERED: AMPICILLIN SOD/SULBACTAM SOD 3 GM in D5W MINI-BAG PLUS 100 ML IV ONE (23:15)
--- NOTE | 2021-01-29 23:39 | DNPDOC ---
[facility] Delivery Note Delivery Note DATE OF DELIVERY: 01/29/21 at 2146 PREDELIVERY DIAGNOSIS: 37-1/7 weeks' gestation and induction of labor. POST DELIVERY DIAGNOSIS: Delivered. PROCEDURE: Spontaneous vaginal delivery. VALIDATION ARCHITECT: Gregory Heard CNM, YEMI ANESTHESIA: epidural. ESTIMATED BLOOD LOSS: 200 mL. FINDINGS: 6 pounds 13 ounces; 3100 grams; female infant, Score 8/9, cholestasis, trailing membrane, marginal cord insertion. DELIVERY SUMMARY: Betsy is a 26-year-old female who is now a at 37.1 weeks gestation who presented for an induction of labor for cholestasis. She was 4 cm when she arrived and was started on IV Pitocin for induction. She spontaneously ruptured at 164 to a moderate amount of clear fluid. Betsy requested an epidural for pain management. She progressed to fully dilated at 2112 and pushed to a living female in the MIROSLAVA position with restitution to ROT. The anterior shoulder delivered with ease and the corpus immediately followed. The baby was placed [id number] active and crying with stimulation. The cord was clamped and cut by the FOB after pulsation ceased. A 3-vessel cord was noted. The placenta delivered spontaneously with trailing membranes. The membranes were manually removed with multiple uterine sweeps. Unasyn was ordered to help decrease potential for infection. The vagina, cervix, and perineum was inspected and found to have a left labial split with a right labial laceration extending into the right vaginal wall. The repair was done with a 4.0 Vicryl Rapide RB-[address]-1. Mom plans to breastfeed. They are naming her Sarah. Both mom and baby are in stable condition. All counts of instruments and sponges are correct. GREGORY HEARD CNM Jan 29, 2021 23:39
[2021-01-30 00:15] VITALS: BP 140/96
[2021-01-30 05:00] VITALS: BP 134/77
[2021-01-30] MEDS: PRENATAL VITAMINS CHEWABLE TABLET PO SCH (08:37)
--- NOTE | 2021-01-30 11:18 | IPNPDOC ---
Progress Note Date of Service: Jan 30, 2021 Progress Note SUBJECT: Patient is a 26-year-old G 1 P 1 status post uncomplicated spontaneous vaginal delivery at 37-1/7 weeks' doing well day #1. She has been ambulating, voiding spontaneously without issue and tolerating regular diet. Breast feeding without issue. Reports lochia is like a normal period. Patient is ambulating well. Reports some cramping, well controlled with medication. Voiding and ambulating without difficulty. OBJECTIVE: VITAL SIGNS: Within normal limits, afebrile. Alert and oriented times three. Breath sounds clear to auscultation. Heart rate: Regular rate and rhythm, no murmurs, rubs or gallops. Abdomen: Fundus firm at U-2. Soft, NTTP. Minimal to moderate lochia. ASSESSMENT: Patient is a 26-year-old G 1 P 1 status post uncomplicated vaginal delivery after presenting to labor and delivery for induction of labor secondary to diagnosis of cholestasis of . Doing well on day 1. Vitals within normal limits, afebrile, hemodynamically stable with no evidence of infection. PLAN: 1. Discharge to home tomorrow 2. Tylenol and Motrin for pain. 3. Encourage breast feeding and ambulation. 4. Routine PP visit in 6 weeks in clinic. 5. Discussed return precautions at length. VS, I&O, 24H, Fishbone Vital Signs/I&O Vital Signs Date Time Temp Pulse Resp B/P (MAP) Pulse Ox O2 Delivery O2 Flow Rate FiO2 01/30/21 05:00 97.9 70 18 134/77 (96) 98 Room Air I&O- Last 24 Hours up to 6 AM 01/30/21 06:00 Intake Total 1900 ml Output Total 700 ml Balance 1200 ml ISADORA MODI MD Jan 30, 2021 11:18
[2021-01-30 18:00] VITALS: BP 128/69
[2021-01-31] MEDS: PRENATAL VITAMINS CHEWABLE TABLET PO SCH (08:28)
[2021-01-31] MEDS ORDERED: ACET-683 PO (08:28)
[2021-01-31] MEDS ORDERED: IBUP80TA PO (08:28)
== END 2021-01-31 11:05 | disposition home or self-care (01) | DRG 805 ==
LOC: M LDI 08:13 → M OBS 01-30 00:15
PROVIDERS: ADMIT Advanced Practice Midwife; ATTEND Advanced Practice Midwife
PROC: 10E0XZZ Delivery of Products of Conception, External Approach (ICD-10-PCS; principal; 2021-01-29)
PROC: 0HQ9XZZ Repair Perineum Skin, External Approach (ICD-10-PCS; 2021-01-29)
PROC: 3E033VJ Introduction of Other Hormone into Peripheral Vein, Percutaneous Approach (ICD-10-PCS; 2021-01-29)
DX: O26.62 Liver and biliary tract disorders in childbirth (principal); Z37.0 Single live birth; K83.1 Obstruction of bile duct; Z3A.37 37 weeks gestation of pregnancy; O99.824 Streptococcus B carrier state complicating childbirth; O70.0 First degree perineal laceration during delivery

== ENCOUNTER → 2022-01-29 | Outpatient (CLI) | payer OTHER ==
[~2022-01-29] MED LIST changes: +ACET-683 PO; +IBUP80TA PO
[2022-01-29 17:22] LABS: HEMOGLOBIN 11.9 g/dl (12.0-15.5); MEAN CORPUSCULAR HEMOGLOBIN 30.3 pg (27.0-33.0); MEAN CORPUSCULAR VOLUME 86.5 fl (80.0-96.0); PLATELET COUNT, AUTOMATED 270 10^3/uL (150-450); RED BLOOD COUNT 3.93 10^6/uL (4.00-5.40); WHITE BLOOD COUNT 10.1 10^3/uL (4.0-10.0)
[2022-01-29 19:20] LABS: HIV 1&2 SCREEN CENTAUR NEGATIVE (NEGATIVE)
[2022-01-29 19:29] LABS: HEPATITIS C VIRUS ABY INDEX 0.1 INDEX (<0.8)
[2022-01-29 22:36] LABS: GC DNA AMPLIFICATION NEGATIVE (NEGATIVE)
== END ==
LOC: M PLALAB 15:38
PROVIDERS: ATTEND Advanced Practice Midwife
DX: Z36.9 Encounter for antenatal screening, unspecified (principal)

== ENCOUNTER → 2022-02-27 | Outpatient (REF) | payer OTHER | LOC: M SFHCWAGY 10:03 | PROVIDERS: ATTEND Specialist | DX: Z34.82 Encounter for supervision of other normal pregnancy, second trimester (principal) ==